=== PATIENT | male | born 1940 | race Caucasian/White ===

== ENCOUNTER 2019-09-30 11:17 | Inpatient (IN) ==
[2019-09-30 12:57] LABS: Apearance,Urine CLEAR (Clear); Bilirubin,Urine Negative (Negative); Blood, Urine Moderate mg/dL (Negative); Glucose,Urine (UA) Negative (Negative); Ketones,Urine 20 mg/dL (Negative); Mucus,Urine Occasional /LPF (Occasional); Nitrite,Urine Negative (Negative); Protein,Urine Negative; RBC,Urine 9 /HPF (0-4); Urine Color Yellow (Yellow); Urine Urobilinogen < 2.0 EU/DL (0.2-1.0); WBC,Urine <1 /HPF (0-6)
[2019-09-30 13:03] LABS: Basophils % 0.2 % (0.0-0.8); Hemoglobin 16.1 GM/DL (14.0-18.0); Immature Granulocytes % 0.6 %; Immature Granulocytes Absolute 0.07 #; Lymphocytes # 1.2 10*3/uL (1.4-4.0); Lymphocytes % 10.8 % (21.2-54.2); Mean Corpuscular HGB Conc 32.2 GM/DL (32-36); Mean Platelet Volume 10.5 FL (9.6-12.0); Monocytes % 8.9 % (1.7-12.7); Neutrophils % 79.5 % (38.7-73.9); Platelet Count 196 T/CUMM (130-400); Red Blood Count 5.32 MC/CUMM (3.8-5.5); Red Cell Distribution Width 12.6 % (9.3-17.3); White Blood Count 11.4 T/CUMM (4-12)
[2019-09-30 13:29] LABS: Albumin 3.4 G/DL (3.4-5.0); Bilirubin,Total 3.1 MG/DL (0.2-1.0); Calcium 9.1 MG/DL (8.5-10.1); Osmolality,Calculated 275.7 MOS/KG (273-304)
[2019-09-30] MEDS ORDERED: SODIUM CHLORIDE 0.9% 500 ML IV STA (13:54)
[2019-09-30] MEDS ORDERED: hydrALAZINE 20 MG/1 ML VIAL IV STA ×2 (13:55→14:50)
[2019-09-30] MEDS ORDERED: hydrALAZINE 20 MG/1 ML VIAL ONE (14:05)
[2019-09-30] MEDS ORDERED: ONDANSETRON 4 MG/2 ML VIAL IV PRN (15:04)
[2019-09-30] MEDS ORDERED: ACETAMINOPHEN 325 MG TABLET PO PRN (15:04)
[2019-09-30] MEDS ORDERED: LORazepam 2 MG/1 ML VIAL IV STA (15:36)
[2019-09-30] MEDS: SODIUM CHLORIDE 0.9% 1,000 ML IV SCH (16:53)
[2019-09-30] MEDS: cefTRIAXone 2,000 MG in SYRINGE 1 EACH IV SCH (16:57)
[2019-09-30] MEDS: ENOXAPARIN 40 MG/0.4 ML SYRINGE SUBCUT SCH (16:57)
[2019-10-01] MEDS: SODIUM CHLORIDE 0.9% 1,000 ML IV SCH ×2 (01:47→15:33)
[2019-10-01 05:32] LABS: Basophils % 0.4 % (0.0-0.8); Eosinophils # 0.1 10*3/uL (0.0-0.87); Eosinophils % 0.6 % (0.00-10.9); Hemoglobin 14.3 GM/DL (14.0-18.0); Immature Granulocytes % 0.5 %; Immature Granulocytes Absolute 0.05 #; Lymphocytes # 1.9 10*3/uL (1.4-4.0); Lymphocytes % 19.5 % (21.2-54.2); Mean Corpuscular HGB Conc 32.5 GM/DL (32-36); Mean Corpuscular Volume 93.4 FL (87-102); Mean Platelet Volume 11.5 FL (9.6-12.0); Monocytes % 13.3 % (1.7-12.7); Neutrophils % 65.7 % (38.7-73.9); Red Blood Count 4.71 MC/CUMM (3.8-5.5); Red Cell Distribution Width 12.8 % (9.3-17.3); White Blood Count 9.8 T/CUMM (4-12)
[2019-10-01 05:38] LABS: Platelet Count 158 T/CUMM (130-400)
[2019-10-01 06:02] LABS: Calcium 8.5 MG/DL (8.5-10.1); Osmolality,Calculated 276.5 MOS/KG (273-304)
[2019-10-01 06:06] LABS: Platelet Estimate Decreased; Polychromasia Slight
[2019-10-01] MEDS: PANTOPRAZOLE 40 MG TABLET PO SCH (09:50)
[2019-10-01] MEDS ORDERED: LORazepam 2 MG/1 ML VIAL IV ONE (15:22)
[2019-10-01] MEDS: cefTRIAXone 2,000 MG in SYRINGE 1 EACH IV SCH (17:00)
[2019-10-01] MEDS: ACETAMINOPHEN 325 MG/10.15 ML UDCUP PO PRN (17:01)
[2019-10-01] MEDS: ENOXAPARIN 40 MG/0.4 ML SYRINGE SUBCUT SCH (17:01)
[2019-10-01] MEDS: LACTULOSE 20 GM/30 ML UDCUP PO SCH (21:09)
[2019-10-02] MEDS: SODIUM CHLORIDE 0.9% 1,000 ML IV SCH ×3 (00:23→22:03)
[2019-10-02 05:49] LABS: Basophils % 0.2 % (0.0-0.8); Eosinophils # 0.1 10*3/uL (0.0-0.87); Eosinophils % 0.5 % (0.00-10.9); Hematocrit 43.9 VOL% (42.0-52.0); Hemoglobin 14.4 GM/DL (14.0-18.0); Immature Granulocytes % 0.3 %; Immature Granulocytes Absolute 0.03 #; Lymphocytes # 1.4 10*3/uL (1.4-4.0); Lymphocytes % 14.9 % (21.2-54.2); Mean Corpuscular HGB Conc 32.8 GM/DL (32-36); Mean Corpuscular Volume 92.6 FL (87-102); Mean Platelet Volume 10.7 FL (9.6-12.0); Monocytes % 12.5 % (1.7-12.7); Neutrophils % 71.6 % (38.7-73.9); Platelet Count 175 T/CUMM (130-400); Red Blood Count 4.74 MC/CUMM (3.8-5.5); Red Cell Distribution Width 12.7 % (9.3-17.3); White Blood Count 9.4 T/CUMM (4-12)
[2019-10-02 06:06] LABS: Calcium 8.4 MG/DL (8.5-10.1); Osmolality,Calculated 282.3 MOS/KG (273-304)
[2019-10-02] MEDS ORDERED: MORPHINE 4 MG/1 ML VIAL IV ONE (08:54)
[2019-10-02] MEDS ORDERED: HYDROmorphone 2 MG/1 ML VIAL IV ONE (09:28)
[2019-10-02] MEDS: MEROPENEM 500 MG in SODIUM CHLORIDE 0.9% 100 ML IV SCH ×3 (12:56→21:04)
[2019-10-02] MEDS: ACETAMINOPHEN 325 MG/10.15 ML UDCUP PO PRN ×2 (12:57→23:40)
[2019-10-02] MEDS: PANTOPRAZOLE 40 MG TABLET PO SCH (13:25)
[2019-10-02] MEDS: VANCOMYCIN INJ 1,250 MG in SODIUM CHLORIDE 0.9% 250 ML IV SCH ×2 (14:52→23:15)
[2019-10-02] MEDS: LACTULOSE 20 GM/30 ML UDCUP PO SCH ×2 (16:08→21:04)
[2019-10-02] MEDS: ENOXAPARIN 40 MG/0.4 ML SYRINGE SUBCUT SCH (16:39)
[2019-10-03] MEDS: MEROPENEM 500 MG in SODIUM CHLORIDE 0.9% 100 ML IV SCH ×4 (04:09→23:50)
[2019-10-03] MEDS: SODIUM CHLORIDE 0.9% 1,000 ML IV SCH ×2 (05:11→14:19)
[2019-10-03 05:53] LABS: Basophils % 0.2 % (0.0-0.8); Eosinophils # 0.1 10*3/uL (0.0-0.87); Hematocrit 41.2 VOL% (42.0-52.0); Hemoglobin 13.5 GM/DL (14.0-18.0); Immature Granulocytes % 0.6 %; Immature Granulocytes Absolute 0.05 #; Lymphocytes # 1.6 10*3/uL (1.4-4.0); Lymphocytes % 18.1 % (21.2-54.2); Mean Corpuscular HGB Conc 32.8 GM/DL (32-36); Mean Platelet Volume 11.1 FL (9.6-12.0); Monocytes % 13.6 % (1.7-12.7); Neutrophils % 66.5 % (38.7-73.9); Platelet Count 163 T/CUMM (130-400); Red Blood Count 4.48 MC/CUMM (3.8-5.5); Red Cell Distribution Width 12.7 % (9.3-17.3); White Blood Count 8.9 T/CUMM (4-12)
[2019-10-03 06:16] LABS: Calcium 8.3 MG/DL (8.5-10.1); Osmolality,Calculated 280.3 MOS/KG (273-304)
[2019-10-03] MEDS: LACTULOSE 20 GM/30 ML UDCUP PO SCH ×2 (08:59→20:14)
[2019-10-03] MEDS: PANTOPRAZOLE 40 MG TABLET PO SCH (08:59)
[2019-10-03] MEDS ORDERED: DESFLURANE 1 UNIT/15 MINUTE INH ONE (12:30)
[2019-10-03] MEDS ORDERED: LIDOCAINE 2% 5 ML VIAL ONE (12:30)
[2019-10-03] MEDS ORDERED: fentaNYL 100 MCG/2 ML VIAL ONE (12:31)
[2019-10-03] MEDS ORDERED: METOPROLOL TARTRATE 5 MG/5 ML VIAL IV ONE (12:31)
[2019-10-03] MEDS ORDERED: SUCCINYLCHOLINE 200 MG/10 ML VIAL ONE (12:31)
[2019-10-03] MEDS ORDERED: ETOMIDATE 40 MG/20 ML VIAL IV ONE (12:31)
[2019-10-03] MEDS ORDERED: MEPERIDINE 25 MG/1 ML VIAL ONE (12:42)
[2019-10-03] MEDS ORDERED: ONDANSETRON 4 MG/2 ML VIAL IV PRN (12:43)
[2019-10-03] MEDS ORDERED: ONDANSETRON 4 MG/2 ML VIAL ONE (12:45)
[2019-10-03] MEDS: MEPERIDINE 25 MG/1 ML VIAL IV PRN ×2 (12:45→13:12)
[2019-10-03] MEDS: VANCOMYCIN INJ 1,250 MG in SODIUM CHLORIDE 0.9% 250 ML IV SCH (14:19)
[2019-10-03] MEDS: ACETAMINOPHEN 325 MG/10.15 ML UDCUP PO PRN ×2 (16:34→22:44)
[2019-10-03] MEDS: HYDROmorphone 2 MG/1 ML VIAL IV PRN (17:36)
[2019-10-03] MEDS: POTASSIUM CHLORIDE 20 MEQ TABLET PO PRN ×2 (20:13→22:40)
[2019-10-03] MEDS ORDERED: MAGNESIUM SULF RIDER 2 GM in PREMIX 1 EACH IV PRN (21:31)
[2019-10-04] MEDS: SODIUM CHLORIDE 0.9% 1,000 ML IV SCH ×3 (00:15→22:09)
[2019-10-04] MEDS: VANCOMYCIN INJ 1,250 MG in SODIUM CHLORIDE 0.9% 250 ML IV SCH ×3 (01:01→23:54)
[2019-10-04] MEDS: POTASSIUM CHLORIDE 20 MEQ TABLET PO PRN (01:03)
[2019-10-04] MEDS: MEROPENEM 500 MG in SODIUM CHLORIDE 0.9% 100 ML IV SCH ×4 (03:26→21:54)
[2019-10-04] MEDS: HYDROmorphone 2 MG/1 ML VIAL IV PRN (06:31)
[2019-10-04] MEDS: LACTULOSE 20 GM/30 ML UDCUP PO SCH ×2 (08:44→21:58)
[2019-10-04] MEDS: PANTOPRAZOLE 40 MG TABLET PO SCH (08:44)
[2019-10-04] MEDS: ENOXAPARIN 40 MG/0.4 ML SYRINGE SUBCUT SCH (15:04)
[2019-10-04] MEDS ORDERED: MAGNESIUM SULF RIDER 2 GM in PREMIX 1 EACH IV ONE (15:08)
[2019-10-04] MEDS ORDERED: POTASSIUM CHLORIDE 20 MEQ TABLET PO ONE (15:09)
[2019-10-04] MEDS: ACETAMINOPHEN 325 MG/10.15 ML UDCUP PO PRN (15:16)
[2019-10-04] MEDS ORDERED: METOPROLOL TARTRATE 5 MG/5 ML VIAL IV ONE (15:22)
[2019-10-04] MEDS ORDERED: POTASSIUM CHLORIDE 20 MEQ/15 ML UDCUP PO ONE (15:22)
[2019-10-04] MEDS: DILTIAZEM 30 MG TABLET PO SCH ×2 (16:10→21:55)
[2019-10-04] MEDS: diphenhydrAMINE 25 MG/10 ML UDCUP PO PRN (21:58)
[2019-10-05] MEDS: MEROPENEM 500 MG in SODIUM CHLORIDE 0.9% 100 ML IV SCH ×4 (04:02→22:02)
[2019-10-05] MEDS: DILTIAZEM 30 MG TABLET PO SCH ×4 (04:03→22:01)
[2019-10-05 06:07] LABS: Basophils % 0.2 % (0.0-0.8); Eosinophils # 0.3 10*3/uL (0.0-0.87); Eosinophils % 3.7 % (0.00-10.9); Hematocrit 41.2 VOL% (42.0-52.0); Hemoglobin 13.8 GM/DL (14.0-18.0); Immature Granulocytes % 0.2 %; Immature Granulocytes Absolute 0.02 #; Lymphocytes # 1.1 10*3/uL (1.4-4.0); Mean Corpuscular HGB Conc 33.5 GM/DL (32-36); Mean Corpuscular Volume 90.4 FL (87-102); Mean Platelet Volume 10.3 FL (9.6-12.0); Neutrophils % 72.9 % (38.7-73.9); Platelet Count 200 T/CUMM (130-400); Red Blood Count 4.56 MC/CUMM (3.8-5.5); Red Cell Distribution Width 12.4 % (9.3-17.3); White Blood Count 8.6 T/CUMM (4-12)
[2019-10-05 06:33] LABS: Calcium 8.3 MG/DL (8.5-10.1); Osmolality,Calculated 274.7 MOS/KG (273-304)
[2019-10-05] MEDS ORDERED: POTASSIUM CHLORIDE 20 MEQ/15 ML UDCUP PO ONE (08:58)
[2019-10-05] MEDS: OXYBUTYNIN 5 MG TABLET PO SCH ×2 (10:05→22:02)
[2019-10-05] MEDS: LACTULOSE 20 GM/30 ML UDCUP PO SCH ×2 (10:05→22:02)
[2019-10-05] MEDS: ENALAPRIL 10 MG TABLET PO SCH (10:06)
[2019-10-05] MEDS: PANTOPRAZOLE 40 MG TABLET PO SCH (10:06)
[2019-10-05] MEDS: MEMANTINE 10 MG TABLET PO SCH ×2 (10:07→22:02)
[2019-10-05] MEDS: SODIUM CHLORIDE 0.9% 1,000 ML IV SCH (10:57)
[2019-10-05] MEDS: VANCOMYCIN INJ 1,250 MG in SODIUM CHLORIDE 0.9% 250 ML IV SCH ×2 (10:57→23:40)
[2019-10-05] MEDS ORDERED: SODIUM PHOSPHATE ENEMA 133 ML BOTTLE RECTAL ONE (14:10)
[2019-10-05] MEDS: ENOXAPARIN 40 MG/0.4 ML SYRINGE SUBCUT SCH (16:19)
[2019-10-05] MEDS ORDERED: traZODone 50 MG TABLET PO PRN (16:39)
[2019-10-05] MEDS ORDERED: HALOPERIDOL 1 MG TABLET PO PRN (16:42)
[2019-10-05] MEDS: diphenhydrAMINE 25 MG/10 ML UDCUP PO PRN (22:05)
[2019-10-06] MEDS: DILTIAZEM 30 MG TABLET PO SCH ×2 (04:07→09:33)
[2019-10-06] MEDS: MEROPENEM 500 MG in SODIUM CHLORIDE 0.9% 100 ML IV SCH (04:07)
[2019-10-06 05:03] LABS: Basophils % 0.4 % (0.0-0.8); Eosinophils # 0.3 10*3/uL (0.0-0.87); Eosinophils % 4.1 % (0.00-10.9); Hematocrit 41.7 VOL% (42.0-52.0); Hemoglobin 13.9 GM/DL (14.0-18.0); Immature Granulocytes % 0.2 %; Immature Granulocytes Absolute 0.02 #; Lymphocytes # 1.4 10*3/uL (1.4-4.0); Lymphocytes % 17.2 % (21.2-54.2); Mean Corpuscular HGB Conc 33.3 GM/DL (32-36); Mean Corpuscular Volume 89.9 FL (87-102); Mean Platelet Volume 10.2 FL (9.6-12.0); Monocytes % 9.8 % (1.7-12.7); Neutrophils % 68.3 % (38.7-73.9); Platelet Count 216 T/CUMM (130-400); Red Blood Count 4.64 MC/CUMM (3.8-5.5); Red Cell Distribution Width 12.5 % (9.3-17.3); White Blood Count 8.4 T/CUMM (4-12)
[2019-10-06 05:11] LABS: Calcium 8.5 MG/DL (8.5-10.1); Osmolality,Calculated 276.5 MOS/KG (273-304)
[2019-10-06] MEDS: LEVOTHYROXINE 25 MCG TABLET PO SCH (06:10)
[2019-10-06] MEDS: CEFEPIME 1,000 MG in SODIUM CHLORIDE 0.9% 100 ML IV SCH ×2 (09:32→17:17)
[2019-10-06] MEDS: POTASSIUM CHLORIDE 20 MEQ/15 ML UDCUP PO SCH (09:33)
[2019-10-06] MEDS: OXYBUTYNIN 5 MG TABLET PO SCH ×2 (09:33→21:07)
[2019-10-06] MEDS: MEMANTINE 10 MG TABLET PO SCH ×2 (09:33→21:08)
[2019-10-06] MEDS: PANTOPRAZOLE 40 MG TABLET PO SCH (09:33)
[2019-10-06] MEDS: ASPIRIN EC 81 MG TABLET PO SCH (09:33)
[2019-10-06] MEDS: LACTULOSE 20 GM/30 ML UDCUP PO SCH ×2 (09:33→21:07)
[2019-10-06] MEDS: ENALAPRIL 10 MG TABLET PO SCH (09:34)
[2019-10-06] MEDS: DILTIAZEM CD 120 MG CAPSULE PO SCH (10:29)
[2019-10-06] MEDS: VANCOMYCIN INJ 1,250 MG in SODIUM CHLORIDE 0.9% 250 ML IV SCH (12:16)
[2019-10-06] MEDS: ASCORBIC ACID 500 MG TABLET PO SCH ×2 (12:20→21:08)
[2019-10-06] MEDS: METOPROLOL TARTRATE 25 MG TABLET PO SCH ×2 (12:24→21:08)
[2019-10-06] MEDS: ENOXAPARIN 40 MG/0.4 ML SYRINGE SUBCUT SCH (15:23)
[2019-10-07] MEDS: CEFEPIME 1,000 MG in SODIUM CHLORIDE 0.9% 100 ML IV SCH ×5 (00:44→22:36)
[2019-10-07] MEDS: VANCOMYCIN INJ 1,250 MG in SODIUM CHLORIDE 0.9% 250 ML IV SCH ×2 (00:48→11:00)
[2019-10-07] MEDS: diphenhydrAMINE 25 MG/10 ML UDCUP PO PRN (00:57)
[2019-10-07] MEDS: LEVOTHYROXINE 25 MCG TABLET PO SCH (05:52)
[2019-10-07 07:06] LABS: Basophils % 0.4 % (0.0-0.8); Eosinophils # 0.3 10*3/uL (0.0-0.87); Eosinophils % 3.8 % (0.00-10.9); Hematocrit 41.3 VOL% (42.0-52.0); Hemoglobin 13.7 GM/DL (14.0-18.0); Immature Granulocytes % 0.4 %; Immature Granulocytes Absolute 0.03 #; Lymphocytes # 1.8 10*3/uL (1.4-4.0); Lymphocytes % 22.9 % (21.2-54.2); Mean Corpuscular HGB Conc 33.2 GM/DL (32-36); Mean Corpuscular Volume 90.2 FL (87-102); Mean Platelet Volume 10.2 FL (9.6-12.0); Monocytes % 8.1 % (1.7-12.7); Neutrophils % 64.4 % (38.7-73.9); Platelet Count 238 T/CUMM (130-400); Red Blood Count 4.58 MC/CUMM (3.8-5.5); Red Cell Distribution Width 12.5 % (9.3-17.3)
[2019-10-07 07:33] LABS: Calcium 8.7 MG/DL (8.5-10.1); Osmolality,Calculated 280.3 MOS/KG (273-304)
[2019-10-07] MEDS: POTASSIUM CHLORIDE 20 MEQ/15 ML UDCUP PO SCH (09:55)
[2019-10-07] MEDS: LACTULOSE 20 GM/30 ML UDCUP PO SCH ×2 (09:55→22:36)
[2019-10-07] MEDS: OXYBUTYNIN 5 MG TABLET PO SCH ×2 (09:55→22:37)
[2019-10-07] MEDS: METOPROLOL TARTRATE 25 MG TABLET PO SCH ×2 (09:55→22:37)
[2019-10-07] MEDS: ASCORBIC ACID 500 MG TABLET PO SCH ×2 (09:55→22:37)
[2019-10-07] MEDS: DILTIAZEM CD 120 MG CAPSULE PO SCH (09:55)
[2019-10-07] MEDS: ASPIRIN EC 81 MG TABLET PO SCH (09:56)
[2019-10-07] MEDS: ENALAPRIL 10 MG TABLET PO SCH (09:56)
[2019-10-07] MEDS: PANTOPRAZOLE 40 MG TABLET PO SCH (09:56)
[2019-10-07] MEDS: MEMANTINE 10 MG TABLET PO SCH ×2 (09:56→22:37)
[2019-10-07] MEDS: NICOTINE 21 MG/24 HR PATCH TRANSDERM SCH (16:12)
[2019-10-07] MEDS: ENOXAPARIN 40 MG/0.4 ML SYRINGE SUBCUT SCH (16:12)
[2019-10-07] MEDS: MELATONIN 3 MG TABLET PO SCH (22:36)
[2019-10-08] MEDS: VANCOMYCIN INJ 1,250 MG in SODIUM CHLORIDE 0.9% 250 ML IV SCH ×3 (00:25→22:14)
[2019-10-08] MEDS: CEFEPIME 1,000 MG in SODIUM CHLORIDE 0.9% 100 ML IV SCH ×4 (05:23→21:23)
[2019-10-08 05:58] LABS: Basophils % 0.2 % (0.0-0.8); Eosinophils # 0.3 10*3/uL (0.0-0.87); Eosinophils % 3.5 % (0.00-10.9); Hematocrit 41.7 VOL% (42.0-52.0); Hemoglobin 13.9 GM/DL (14.0-18.0); Immature Granulocytes % 0.5 %; Immature Granulocytes Absolute 0.04 #; Lymphocytes # 1.4 10*3/uL (1.4-4.0); Lymphocytes % 16.7 % (21.2-54.2); Mean Corpuscular HGB Conc 33.3 GM/DL (32-36); Mean Corpuscular Volume 90.8 FL (87-102); Mean Platelet Volume 9.9 FL (9.6-12.0); Neutrophils % 70.1 % (38.7-73.9); Platelet Count 263 T/CUMM (130-400); Red Blood Count 4.59 MC/CUMM (3.8-5.5); Red Cell Distribution Width 12.6 % (9.3-17.3); White Blood Count 8.2 T/CUMM (4-12)
[2019-10-08 06:31] LABS: Calcium 8.7 MG/DL (8.5-10.1); Osmolality,Calculated 283.1 MOS/KG (273-304)
[2019-10-08] MEDS: LEVOTHYROXINE 25 MCG TABLET PO SCH (08:02)
[2019-10-08] MEDS: DILTIAZEM CD 120 MG CAPSULE PO SCH (09:41)
[2019-10-08] MEDS: ASPIRIN EC 81 MG TABLET PO SCH (09:41)
[2019-10-08] MEDS: LACTULOSE 20 GM/30 ML UDCUP PO SCH ×2 (09:41→20:33)
[2019-10-08] MEDS: NICOTINE 21 MG/24 HR PATCH TRANSDERM SCH (09:41)
[2019-10-08] MEDS: ASCORBIC ACID 500 MG TABLET PO SCH ×2 (09:41→20:33)
[2019-10-08] MEDS: POTASSIUM CHLORIDE 20 MEQ/15 ML UDCUP PO SCH (09:42)
[2019-10-08] MEDS: OXYBUTYNIN 5 MG TABLET PO SCH ×2 (09:42→20:12)
[2019-10-08] MEDS: MEMANTINE 10 MG TABLET PO SCH ×2 (09:42→20:12)
[2019-10-08] MEDS: METOPROLOL TARTRATE 25 MG TABLET PO SCH ×2 (09:42→20:33)
[2019-10-08] MEDS: PANTOPRAZOLE 40 MG TABLET PO SCH (09:42)
[2019-10-08] MEDS: ENALAPRIL 10 MG TABLET PO SCH (09:42)
[2019-10-08] MEDS: ENOXAPARIN 40 MG/0.4 ML SYRINGE SUBCUT SCH (16:45)
[2019-10-08] MEDS: MELATONIN 3 MG TABLET PO SCH (20:12)
[2019-10-09] MEDS: CEFEPIME 1,000 MG in SODIUM CHLORIDE 0.9% 100 ML IV SCH ×4 (03:39→21:51)
[2019-10-09] MEDS: LEVOTHYROXINE 25 MCG TABLET PO SCH (06:11)
[2019-10-09] MEDS: METOPROLOL TARTRATE 25 MG TABLET PO SCH ×2 (09:35→21:52)
[2019-10-09] MEDS: OXYBUTYNIN 5 MG TABLET PO SCH ×2 (09:35→21:52)
[2019-10-09] MEDS: MEMANTINE 10 MG TABLET PO SCH ×2 (09:35→21:52)
[2019-10-09] MEDS: ASCORBIC ACID 500 MG TABLET PO SCH ×2 (09:35→21:52)
[2019-10-09] MEDS: ASPIRIN EC 81 MG TABLET PO SCH (09:35)
[2019-10-09] MEDS: PANTOPRAZOLE 40 MG TABLET PO SCH (09:36)
[2019-10-09] MEDS: ENALAPRIL 10 MG TABLET PO SCH (09:36)
[2019-10-09] MEDS: LACTULOSE 20 GM/30 ML UDCUP PO SCH ×2 (09:37→21:53)
[2019-10-09] MEDS: DILTIAZEM CD 120 MG CAPSULE PO SCH (09:37)
[2019-10-09] MEDS: NICOTINE 21 MG/24 HR PATCH TRANSDERM SCH (09:37)
[2019-10-09] MEDS: POTASSIUM CHLORIDE 20 MEQ/15 ML UDCUP PO SCH (09:37)
[2019-10-09] MEDS: VANCOMYCIN INJ 1,250 MG in SODIUM CHLORIDE 0.9% 250 ML IV SCH (12:14)
[2019-10-09] MEDS: ENOXAPARIN 40 MG/0.4 ML SYRINGE SUBCUT SCH (15:35)
[2019-10-09] MEDS: MELATONIN 3 MG TABLET PO SCH (21:52)
[2019-10-09] MEDS: diphenhydrAMINE 25 MG/10 ML UDCUP PO PRN (21:55)
[2019-10-10] MEDS: VANCOMYCIN INJ 1,250 MG in SODIUM CHLORIDE 0.9% 250 ML IV SCH ×2 (00:17→12:07)
[2019-10-10] MEDS: CEFEPIME 1,000 MG in SODIUM CHLORIDE 0.9% 100 ML IV SCH ×4 (04:57→22:41)
[2019-10-10 05:10] LABS: Basophils % 0.2 % (0.0-0.8); Eosinophils # 0.3 10*3/uL (0.0-0.87); Eosinophils % 2.9 % (0.00-10.9); Hematocrit 42.2 VOL% (42.0-52.0); Hemoglobin 13.9 GM/DL (14.0-18.0); Immature Granulocytes % 0.5 %; Immature Granulocytes Absolute 0.05 #; Lymphocytes # 1.4 10*3/uL (1.4-4.0); Lymphocytes % 14.7 % (21.2-54.2); Mean Corpuscular HGB Conc 32.9 GM/DL (32-36); Mean Corpuscular Volume 91.5 FL (87-102); Mean Platelet Volume 9.7 FL (9.6-12.0); Monocytes % 9.7 % (1.7-12.7); Platelet Count 312 T/CUMM (130-400); Red Blood Count 4.61 MC/CUMM (3.8-5.5); Red Cell Distribution Width 12.7 % (9.3-17.3); White Blood Count 9.5 T/CUMM (4-12)
[2019-10-10 05:56] LABS: Folate 7.3 NG/ML (5.4-24.0); Vitamin B12 612 PG/ML (211-911)
[2019-10-10 06:14] LABS: Anisocytosis Slight; Platelet Estimate Normal
[2019-10-10] MEDS: LEVOTHYROXINE 25 MCG TABLET PO SCH (06:50)
[2019-10-10 07:35] LABS: Sedimentation Rate-Westergren 78 MM/HR (0-20)
[2019-10-10 09:12] LABS: Calcium 8.5 MG/DL (8.5-10.1); Osmolality,Calculated 278.5 MOS/KG (273-304)
[2019-10-10] MEDS: NICOTINE 21 MG/24 HR PATCH TRANSDERM SCH (10:00)
[2019-10-10] MEDS: DILTIAZEM CD 120 MG CAPSULE PO SCH (10:01)
[2019-10-10] MEDS: LACTULOSE 20 GM/30 ML UDCUP PO SCH ×2 (10:01→21:26)
[2019-10-10] MEDS: METOPROLOL TARTRATE 25 MG TABLET PO SCH ×2 (10:01→21:27)
[2019-10-10] MEDS: OXYBUTYNIN 5 MG TABLET PO SCH ×2 (10:01→21:27)
[2019-10-10] MEDS: POTASSIUM CHLORIDE 20 MEQ/15 ML UDCUP PO SCH (10:01)
[2019-10-10] MEDS: ASPIRIN EC 81 MG TABLET PO SCH (10:03)
[2019-10-10] MEDS: MEMANTINE 10 MG TABLET PO SCH ×2 (10:03→21:27)
[2019-10-10] MEDS: ASCORBIC ACID 500 MG TABLET PO SCH ×2 (10:03→21:26)
[2019-10-10] MEDS: ENALAPRIL 10 MG TABLET PO SCH (10:03)
[2019-10-10] MEDS: PANTOPRAZOLE 40 MG TABLET PO SCH (10:04)
[2019-10-10] MEDS: ENOXAPARIN 40 MG/0.4 ML SYRINGE SUBCUT SCH (16:16)
[2019-10-10] MEDS: diphenhydrAMINE 25 MG/10 ML UDCUP PO PRN (21:26)
[2019-10-10] MEDS: MELATONIN 3 MG TABLET PO SCH (21:27)
[2019-10-11] MEDS: VANCOMYCIN INJ 1,250 MG in SODIUM CHLORIDE 0.9% 250 ML IV SCH ×3 (01:00→23:17)
[2019-10-11] MEDS: CEFEPIME 1,000 MG in SODIUM CHLORIDE 0.9% 100 ML IV SCH ×4 (04:27→22:27)
[2019-10-11] MEDS: LEVOTHYROXINE 25 MCG TABLET PO SCH (05:38)
[2019-10-11 08:48] LABS: Hemoglobin A1 (Alkaline) 97.1 % (96.5-98.5); Hemoglobin A2 (Alkaline) 2.9 % (1.5-3.5)
[2019-10-11] MEDS: ENALAPRIL 10 MG TABLET PO SCH (10:30)
[2019-10-11] MEDS: LACTULOSE 20 GM/30 ML UDCUP PO SCH ×2 (10:30→21:37)
[2019-10-11] MEDS: ASPIRIN EC 81 MG TABLET PO SCH (10:30)
[2019-10-11] MEDS: OXYBUTYNIN 5 MG TABLET PO SCH ×2 (10:30→21:37)
[2019-10-11] MEDS: METOPROLOL TARTRATE 25 MG TABLET PO SCH ×2 (10:30→21:37)
[2019-10-11] MEDS: DILTIAZEM CD 120 MG CAPSULE PO SCH (10:30)
[2019-10-11] MEDS: POTASSIUM CHLORIDE 20 MEQ/15 ML UDCUP PO SCH (10:31)
[2019-10-11] MEDS: PANTOPRAZOLE 40 MG TABLET PO SCH (10:31)
[2019-10-11] MEDS: NICOTINE 21 MG/24 HR PATCH TRANSDERM SCH (10:31)
[2019-10-11] MEDS: ASCORBIC ACID 500 MG TABLET PO SCH ×2 (10:31→21:37)
[2019-10-11] MEDS: MEMANTINE 10 MG TABLET PO SCH ×2 (10:31→21:37)
[2019-10-11] MEDS: ENOXAPARIN 40 MG/0.4 ML SYRINGE SUBCUT SCH (16:04)
[2019-10-11] MEDS: MELATONIN 3 MG TABLET PO SCH (21:37)
[2019-10-12] MEDS: CEFEPIME 1,000 MG in SODIUM CHLORIDE 0.9% 100 ML IV SCH ×4 (03:47→22:14)
[2019-10-12] MEDS: LEVOTHYROXINE 25 MCG TABLET PO SCH (06:44)
[2019-10-12] MEDS: ASPIRIN EC 81 MG TABLET PO SCH (09:51)
[2019-10-12] MEDS: POTASSIUM CHLORIDE 20 MEQ/15 ML UDCUP PO SCH (09:51)
[2019-10-12] MEDS: ENALAPRIL 10 MG TABLET PO SCH (09:51)
[2019-10-12] MEDS: OXYBUTYNIN 5 MG TABLET PO SCH ×2 (09:52→21:52)
[2019-10-12] MEDS: DILTIAZEM CD 120 MG CAPSULE PO SCH (09:52)
[2019-10-12] MEDS: METOPROLOL TARTRATE 25 MG TABLET PO SCH ×2 (09:52→21:52)
[2019-10-12] MEDS: LACTULOSE 20 GM/30 ML UDCUP PO SCH ×2 (09:52→21:52)
[2019-10-12] MEDS: MEMANTINE 10 MG TABLET PO SCH ×2 (09:53→21:52)
[2019-10-12] MEDS: NICOTINE 21 MG/24 HR PATCH TRANSDERM SCH (09:53)
[2019-10-12] MEDS: PANTOPRAZOLE 40 MG TABLET PO SCH (09:53)
[2019-10-12] MEDS: ASCORBIC ACID 500 MG TABLET PO SCH ×2 (10:07→21:52)
[2019-10-12] MEDS: VANCOMYCIN INJ 1,250 MG in SODIUM CHLORIDE 0.9% 250 ML IV SCH ×2 (11:57→23:00)
[2019-10-12] MEDS: ENOXAPARIN 40 MG/0.4 ML SYRINGE SUBCUT SCH (17:01)
[2019-10-12] MEDS: MELATONIN 3 MG TABLET PO SCH (21:52)
[2019-10-12] MEDS: METRONIDAZOLE 1% GEL 60 GM TUBE TOP SCH (21:55)
[2019-10-13] MEDS: CEFEPIME 1,000 MG in SODIUM CHLORIDE 0.9% 100 ML IV SCH ×4 (04:35→21:37)
[2019-10-13] MEDS: LEVOTHYROXINE 25 MCG TABLET PO SCH (06:12)
[2019-10-13] MEDS: OXYBUTYNIN 5 MG TABLET PO SCH ×2 (08:53→20:56)
[2019-10-13] MEDS: ASPIRIN EC 81 MG TABLET PO SCH (08:54)
[2019-10-13] MEDS: PANTOPRAZOLE 40 MG TABLET PO SCH (08:54)
[2019-10-13] MEDS: MEMANTINE 10 MG TABLET PO SCH ×2 (08:54→20:56)
[2019-10-13] MEDS: DILTIAZEM CD 120 MG CAPSULE PO SCH (08:54)
[2019-10-13] MEDS: NICOTINE 21 MG/24 HR PATCH TRANSDERM SCH (08:55)
[2019-10-13] MEDS: ENALAPRIL 10 MG TABLET PO SCH (08:55)
[2019-10-13] MEDS: METOPROLOL TARTRATE 25 MG TABLET PO SCH ×2 (08:55→20:56)
[2019-10-13] MEDS: POTASSIUM CHLORIDE 20 MEQ/15 ML UDCUP PO SCH (08:56)
[2019-10-13] MEDS: LACTULOSE 20 GM/30 ML UDCUP PO SCH ×2 (08:57→20:55)
[2019-10-13] MEDS: ASCORBIC ACID 500 MG TABLET PO SCH ×2 (09:43→20:56)
[2019-10-13] MEDS: VANCOMYCIN INJ 1,250 MG in SODIUM CHLORIDE 0.9% 250 ML IV SCH ×2 (12:59→23:24)
[2019-10-13] MEDS: ENOXAPARIN 40 MG/0.4 ML SYRINGE SUBCUT SCH (16:59)
[2019-10-13] MEDS: MELATONIN 3 MG TABLET PO SCH (20:56)
[2019-10-13] MEDS: METRONIDAZOLE 1% GEL 60 GM TUBE TOP SCH (20:56)
[2019-10-14] MEDS: CEFEPIME 1,000 MG in SODIUM CHLORIDE 0.9% 100 ML IV SCH ×4 (03:47→21:31)
[2019-10-14 05:55] LABS: Basophils % 0.5 % (0.0-0.8); Eosinophils # 0.4 10*3/uL (0.0-0.87); Eosinophils % 4.5 % (0.00-10.9); Hemoglobin 13.9 GM/DL (14.0-18.0); Immature Granulocytes % 0.4 %; Immature Granulocytes Absolute 0.03 #; Lymphocytes # 1.6 10*3/uL (1.4-4.0); Mean Corpuscular HGB Conc 32.3 GM/DL (32-36); Mean Corpuscular Volume 92.5 FL (87-102); Mean Platelet Volume 10.1 FL (9.6-12.0); Monocytes % 7.6 % (1.7-12.7); Platelet Count 355 T/CUMM (130-400); Red Blood Count 4.65 MC/CUMM (3.8-5.5); Red Cell Distribution Width 12.7 % (9.3-17.3); White Blood Count 8.4 T/CUMM (4-12)
[2019-10-14] MEDS: LEVOTHYROXINE 25 MCG TABLET PO SCH (06:18)
[2019-10-14 06:42] LABS: Calcium 7.8 MG/DL (8.5-10.1); Osmolality,Calculated 288.6 MOS/KG (273-304)
[2019-10-14] MEDS: POTASSIUM CHLORIDE 20 MEQ/15 ML UDCUP PO SCH (08:40)
[2019-10-14] MEDS: LACTULOSE 20 GM/30 ML UDCUP PO SCH ×2 (08:40→21:33)
[2019-10-14] MEDS: NICOTINE 21 MG/24 HR PATCH TRANSDERM SCH (08:42)
[2019-10-14] MEDS: ASPIRIN EC 81 MG TABLET PO SCH (08:43)
[2019-10-14] MEDS: DILTIAZEM CD 120 MG CAPSULE PO SCH (08:43)
[2019-10-14] MEDS: ENALAPRIL 10 MG TABLET PO SCH (08:44)
[2019-10-14] MEDS: OXYBUTYNIN 5 MG TABLET PO SCH ×2 (08:44→21:33)
[2019-10-14] MEDS: METOPROLOL TARTRATE 25 MG TABLET PO SCH ×2 (08:45→21:33)
[2019-10-14] MEDS: PANTOPRAZOLE 40 MG TABLET PO SCH (08:45)
[2019-10-14] MEDS: MEMANTINE 10 MG TABLET PO SCH ×2 (08:45→21:33)
[2019-10-14] MEDS: ASCORBIC ACID 500 MG TABLET PO SCH ×2 (13:10→21:33)
[2019-10-14] MEDS: VANCOMYCIN INJ 1,250 MG in SODIUM CHLORIDE 0.9% 250 ML IV SCH ×2 (13:11→22:11)
[2019-10-14] MEDS: ENOXAPARIN 40 MG/0.4 ML SYRINGE SUBCUT SCH (15:14)
[2019-10-14] MEDS: MELATONIN 3 MG TABLET PO SCH (21:33)
[2019-10-14] MEDS: METRONIDAZOLE 1% GEL 60 GM TUBE TOP SCH (21:34)
[2019-10-15] MEDS: CEFEPIME 1,000 MG in SODIUM CHLORIDE 0.9% 100 ML IV SCH ×4 (04:32→22:27)
[2019-10-15] MEDS: LEVOTHYROXINE 25 MCG TABLET PO SCH (05:47)
[2019-10-15] MEDS: POTASSIUM CHLORIDE 20 MEQ TABLET PO SCH (09:51)
[2019-10-15] MEDS: PANTOPRAZOLE 40 MG TABLET PO SCH (09:51)
[2019-10-15] MEDS: OXYBUTYNIN 5 MG TABLET PO SCH ×2 (09:52→20:27)
[2019-10-15] MEDS: ASCORBIC ACID 500 MG TABLET PO SCH ×2 (09:52→20:27)
[2019-10-15] MEDS: ENALAPRIL 10 MG TABLET PO SCH (09:52)
[2019-10-15] MEDS: ASPIRIN EC 81 MG TABLET PO SCH (09:52)
[2019-10-15] MEDS: LACTULOSE 20 GM/30 ML UDCUP PO SCH ×2 (09:53→20:28)
[2019-10-15] MEDS: MEMANTINE 10 MG TABLET PO SCH ×2 (09:53→20:27)
[2019-10-15] MEDS: METOPROLOL TARTRATE 25 MG TABLET PO SCH ×2 (09:53→20:28)
[2019-10-15] MEDS: DILTIAZEM CD 120 MG CAPSULE PO SCH (09:53)
[2019-10-15] MEDS: NICOTINE 21 MG/24 HR PATCH TRANSDERM SCH (09:54)
[2019-10-15] MEDS: POTASSIUM CHLORIDE 20 MEQ/15 ML UDCUP PO SCH (09:55)
[2019-10-15] MEDS: VANCOMYCIN INJ 1,250 MG in SODIUM CHLORIDE 0.9% 250 ML IV SCH ×2 (13:02→22:58)
[2019-10-15] MEDS: ENOXAPARIN 40 MG/0.4 ML SYRINGE SUBCUT SCH (15:28)
[2019-10-15] MEDS: MELATONIN 3 MG TABLET PO SCH (20:27)
[2019-10-15] MEDS: POTASSIUM CHLORIDE 20 MEQ TABLET PO PRN ×2 (20:27→22:30)
[2019-10-15] MEDS: METRONIDAZOLE 1% GEL 60 GM TUBE TOP SCH (20:28)
[2019-10-16] MEDS: POTASSIUM CHLORIDE 20 MEQ TABLET PO PRN (00:44)
[2019-10-16] MEDS: CEFEPIME 1,000 MG in SODIUM CHLORIDE 0.9% 100 ML IV SCH ×2 (04:35→09:54)
[2019-10-16] MEDS: LEVOTHYROXINE 25 MCG TABLET PO SCH (06:23)
[2019-10-16 07:34] VITALS: BP 133/68
[2019-10-16] MEDS: ENALAPRIL 10 MG TABLET PO SCH (08:21)
[2019-10-16] MEDS: ASCORBIC ACID 500 MG TABLET PO SCH (08:22)
[2019-10-16] MEDS: ASPIRIN EC 81 MG TABLET PO SCH (08:22)
[2019-10-16] MEDS: DILTIAZEM CD 120 MG CAPSULE PO SCH (08:22)
[2019-10-16] MEDS: PANTOPRAZOLE 40 MG TABLET PO SCH (08:22)
[2019-10-16] MEDS: MEMANTINE 10 MG TABLET PO SCH (08:22)
[2019-10-16] MEDS: POTASSIUM CHLORIDE 20 MEQ TABLET PO SCH (08:22)
[2019-10-16] MEDS: METOPROLOL TARTRATE 25 MG TABLET PO SCH (08:22)
[2019-10-16] MEDS: LACTULOSE 20 GM/30 ML UDCUP PO SCH (08:23)
[2019-10-16] MEDS: POTASSIUM CHLORIDE 20 MEQ/15 ML UDCUP PO SCH (08:23)
[2019-10-16] MEDS: OXYBUTYNIN 5 MG TABLET PO SCH (08:23)
[2019-10-16] MEDS: NICOTINE 21 MG/24 HR PATCH TRANSDERM SCH (08:23)
== END 2019-10-16 12:19 | DRG 485 ==
LOC: EDUNIT# → EDBD → N.ED 11:17 → SUATTDRO 15:04 → SUPCPDRO 15:04 → N.EDINP 15:04 → N.5E 15:59
PROVIDERS: ADMIT Emergency Medicine; ATTEND Hospitalist